=== PATIENT | male | born 1945 | race Caucasian/White ===

== ENCOUNTER 2016-07-06 12:37 | Emergency (ER) | payer MEDICARE ==
[2016-07-06 12:38] VITALS: PULSE 102; BMI 19.5
--- NOTE | 2016-07-06 13:32 | C.PDOC ---
History Of Present Illness 70 year old patient, with a past medical history of hypertension, a-fib, cardia arrhythmia, COPD, and emphysema, presents to the ED complaining of a left sided headache. Patient states this is a chronic pain and had sinus surgery done at [facility]. Patient denies nausea, vomiting, dizziness, shortness of breath, or chest pain. Time Seen by Provider: 07/06/16 13:10 Chief Complaint (Nursing): Eye Problem History Per: Patient History/Exam Limitations: no limitations Onset/Duration Of Symptoms: Other Current Symptoms Are (Timing): Still Present Severity: Mild Pain Scale Rating Of: 3 Quality: "Pain" Recent travel outside of the [place]: No Past Medical History Reviewed: Historical Data, Nursing Documentation, Vital Signs Vital Signs: Last Vital Signs Temp 97.3 F L 07/06/16 15:27 Pulse 45 L 07/06/16 15:27 Resp 16 07/06/16 15:27 BP 128/75 07/06/16 15:27 Pulse Ox 95 07/06/16 16:06 - Medical History PMH: Atrial Fibrillation, Cardia Arrhythmia, COPD, Emphysema, HTN - [facility] Procedures ATRIAL CARDIOVERSION (01/25/14) CORONAR ARTERIOGR-2 CATH (03/01/13) DX ULTRASOUND-HEART (01/25/14) RT & LT HEART ANGIOCARD (03/01/13) RT/LEFT HEART CARD CATH (03/01/13) Family History: States: Unknown Family Hx - Social History Hx Tobacco Use: No Hx Alcohol Use: No Hx Substance Use: No - Immunization History Hx Tetanus Toxoid Vaccination: Yes Hx Influenza Vaccination: Yes Hx Pneumococcal Vaccination: Yes Review Of Systems Except As Marked, All Systems Reviewed And Found Negative. Cardiovascular: Negative for: Chest Pain Respiratory: Negative for: Shortness of Breath Gastrointestinal: Negative for: Nausea, Vomiting Neurological: Positive for: Headache (left sided). Negative for: Dizziness Physical Exam - Physical Exam Appears: Non-toxic, No Acute Distress Skin: Warm, Dry Head: Atraumatic, Normacephalic Eye(s): bilateral: Normal Inspection, EOMI Ear(s): Bilateral: Normal Nose: No Deformity, Other (lateral wall of the left nasal passage is post surgical) Oral Mucosa: Moist Throat: Normal Neck: Normal ROM, Supple Chest: Symmetrical Cardiovascular: Rhythm Regular Respiratory: Normal Breath Sounds, No Rales, No Rhonchi, No Wheezing Back: Normal Inspection Extremity: Normal ROM Neurological/Psych: Oriented x3 Gait: Steady ED Course And Treatment - Laboratory Results Result Diagrams: 07/06/16 13:38 07/06/16 13:38 Lab Interpretation: Normal O2 Sat by Pulse Oximetry: 95 (RA) Pulse Ox Interpretation: Normal - CT Scan/US Sinus CT Other Rad Studies (CT/US): Read By Radiologist (Aj Post MD), Radiology Report Reviewed CT/US Interpretation: IMPRESSION: Ethmoid and frontal sinusitis. Postoperative changes in the maxillary sinuses. Correlate with prior. sinus CT (images available). Progress Note: Plan: -Sinus CT. -Labs. -Toradol. -Reassess and disposition Reevaluation Time: 16:04 Reassessment Condition: Improved Medical Decision Making Medical Decision Making: mild chronic COPD- benign exam and mild improvement with nebs/steroids in ED distant h/o cigarette smoking. acute on chronic L ethmoid and frontal sinusitis- post-op from [facility] from "fungal" infection Improved on SAIDS/STeroids and tolerated Doxycycline well- offered as 2nd line abx as pt with recent abx tx and Augmentin notoriously hard on the tummy Refer back to [facility] or our ENT- Dr. Castellano. Disposition Doctor Will See Patient In The: Office Counseled Patient/Family Regarding: Studies Performed, Diagnosis - Disposition Referrals: Jaron Day MD [Staff Provider] - Rachael Taylor MD [Staff Provider] - Disposition: HOME/ ROUTINE Disposition Time: 13:56 Condition: GOOD Additional Instructions: Allergias de la Temporada: [place] Alegra-D o' otro medicamento para congestion nasal de la temporada allerigico COPD: neftali chornico de los pulmones Sigue Prednisona 40 mg diario por 5 atwood Sigue bomba de Albuterol 2 puffs cada 3-4 horas- siempre con el Aerochamber Spacer (tubo plastico) se funcciona mejor Sigue con Dr. Day- Especialista de los pulmones, para mas evaluacion' Prescriptions: Albuterol HFA [Ventolin HFA 90 mcg/actuation (8 g)] 2 puff IH [id number] #1 puff Prednisone [Deltasone] 40 mg PO DAILY #8 tablet Spacer, Inhalation [Aerochamber] 1 dev IH DAILY #1 dev Instructions: Sinusitis (ED) Print Language: TURKMEN - Clinical Impression Clinical Impression: Sinusitis - Scribe Statement The provider has reviewed the documentation as recorded by the Yingibe Jacqueline Larson Provider Attestation: All medical record entries made by the Yingibtessa were at my direction and personally dictated by me. I have reviewed the chart and agree that the record accurately reflects my personal performance of the history, physical exam, medical decision making, and the department course for this patient. I have also personally directed, reviewed, and agree with the discharge instructions and disposition.
[2016-07-06 13:53] LABS: BASO # 0.1 K/uL (0.0-0.2); EOS # 0.2 K/uL (0.0-0.7); EOS % 1.7 % (0.0-4.0); HEMATOCRIT 54.6 % (35.0-51.0); LYMPH # 2.8 K/uL (1.0-4.3); MEAN CORPUSCULAR HEMOGLOBIN 30.3 pg (27.0-31.0); MEAN CORPUSCULAR HGB CONC 33.7 g/dL (33.0-37.0); MONO # 1.3 K/uL (0.0-0.8); MONO % 12.8 % (0.0-10.0); NRBC % 0.3 % (0.0-2.0); RED CELL DISTRIBUTION WIDTH 14.4 % (11.5-14.5); WHITE BLOOD COUNT 10.2 K/uL (4.8-10.8)
[2016-07-06 13:57] LABS: CHLORIDE 103 mmol/L (98-107)
[2016-07-06 13:58] LABS: POTASSIUM 4.8 mmol/L (3.6-5.2); SODIUM 138 mmol/L (132-148)
[2016-07-06 14:00] LABS: BILIRUBIN,TOTAL 0.8 mg/dL (0.2-1.3); CARBON DIOXIDE 22 mmol/L (22-30); GFR AFRICAN-AMERICAN > 60
[2016-07-06 14:01] LABS: ALB/GLOB RATIO 1.3 (1.0-2.1); ALKALINE PHOSPHATASE 74 U/L (38-126); ALT/SGPT 17 U/L (21-72); AST/SGOT 31 U/L (17-59); BLOOD UREA NITROGEN 29 mg/dL (9-20); CALCIUM 9.4 mg/dl (8.6-10.4); GLUCOSE,RANDOM 94 mg/dL (75-110); TOTAL PROTEIN 7.5 g/dL (6.3-8.3)
[2016-07-06 15:28] VITALS: BP 128/75; PULSE 45; RESP 16; TEMP 97.3
[2016-07-06 15:47] VITALS: O2SAT 95
--- NOTE | 2016-07-07 12:42 | CT ---
PROCEDURE: CT SINUSES WITHOUT CONTRAST HISTORY: L eye/sinus pain, h/o surg/fungal infect COMPARISON: Comparison is made to the previous study dated 10/19/2015 TECHNIQUE: Contiguous axial CT images of the paranasal sinuses were obtained. Coronal and sagittal reformats were generated. Radiation dose: Total exam DLP = 681.75 mGy-cm. This CT exam was performed using one or more of the following dose reduction techniques: Automated exposure control, adjustment of the mA and/or kV according to patient size, and/or use of iterative reconstruction technique. FINDINGS: FRONTAL SINUSES: Almost complete opacification of the left frontal sinus. ETHMOID SINUSES: Moderate mucosal thickening seen in the ethmoid sinuses. SPHENOID SINUSES: Mild mucosal thickening seen. MAXILLARY SINUSES: Patient status post prior surgery. 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 SINUS DRAINAGE: Opacification of the left frontal sinuses drainage pathway. Mild narrowing in the bilateral sphenoid sinuses pathway drainage. The patient is status post bilateral maxillary antrostomies. NASAL SEPTUM: Mild nasal septum deviation to the right. MASS: None. SKULL BASE: Unremarkable. TEMPORAL BONES: Middle ears and mastoid grossly unremarkable. OTHER FINDINGS: Right-sided dick bullosa is seen. 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 Interval worsening of left frontal opacification since the previous study. Moderate mucosal thickening in the ethmoid sinuses and [id number] maxillary sinus mucosal disease. Otherwise no significant interval change. Preliminary report was submitted by [facility].
== END 2016-07-06 16:18 | disposition home or self-care (01) ==
LOC: C.ER 12:37
DX: J32.9 Chronic sinusitis, unspecified (principal)
CPT/HCPCS: 70486; 80053; 85025; 96374; 99285; J1885